=== PATIENT | female | born 1955 | race Caucasian/White ===

== ENCOUNTER → 2017-05-19 | Outpatient (CLI) | payer OTHER | END | disposition home or self-care (01) | LOC: MAMMO 12:14 | DX: Z12.31 Encounter for screening mammogram for malignant neoplasm of breast (principal) ==

== ENCOUNTER → 2019-07-12 | Outpatient (CLI) | payer OTHER | END | disposition home or self-care (01) | LOC: MAMMO 14:24 | DX: Z12.31 Encounter for screening mammogram for malignant neoplasm of breast (principal) ==

== ENCOUNTER → 2021-04-09 | Outpatient (CLI) | payer OTHER | END | disposition home or self-care (01) | LOC: MAMMO 14:26 | PROVIDERS: ATTEND Family Medicine | DX: Z12.31 Encounter for screening mammogram for malignant neoplasm of breast (principal) ==

== ENCOUNTER → 2023-05-07 | Outpatient (CLI) | payer OTHER | END | disposition home or self-care (01) | LOC: MAMMO 10:54 | PROVIDERS: ATTEND Family Medicine | DX: Z12.31 Encounter for screening mammogram for malignant neoplasm of breast (principal) ==

== ENCOUNTER → 2024-06-06 | Outpatient (CLI) | payer MEDICARE | END | disposition home or self-care (01) | LOC: MAMMO 12:19 → RAD 13:30 | PROVIDERS: ATTEND Family Medicine | DX: Z12.31 Encounter for screening mammogram for malignant neoplasm of breast (principal); M85.88 Other specified disorders of bone density and structure, other site ==